=== PATIENT | male | born 2000 | race Two or more races ===

== ENCOUNTER 2024-03-28 01:29 | Emergency (ER) | payer SELFPAY ==
[~2024-03-28] VITALS: Ht 195.6 cm; Wt 108.9 kg
[2024-03-28 01:54] VITALS: BP 133/84; TEMP 98; O2SAT 99
== END 2024-03-28 02:17 | disposition home or self-care (01) ==
LOC: ER 01:40
DX: S60.551A Superficial foreign body of right hand, initial encounter (principal); W45.8XXA Other foreign body or object entering through skin, initial encounter; Y93.89 Activity, other specified; Y92.89 Other specified places as the place of occurrence of the external cause; Y99.8 Other external cause status